=== PATIENT | female | born 1980 | race Caucasian/White ===

== ENCOUNTER 2025-02-28 11:37 | Emergency (ER) | payer MEDICARE, OTHER ==
[~2025-02-28] VITALS: Ht 154.9 cm; Wt 104.3 kg
[2025-02-28] MEDS ORDERED: LOSA50TA39 PO (11:43)
[2025-02-28] MEDS ORDERED: PROP10TA10 PO (11:43)
[2025-02-28 12:05] LABS: PLATELET COUNT (AUTO) 218 K/uL (179-408); RED BLOOD CELL COUNT(AUTO) 4.78 MIL/uL (3.63-4.92); RED CELL DISTRIBUTION WIDTH 13.3 % (12.3-17.7); WHITE BLOOD COUNT (AUTO) 6.6 K/uL (3.8-11.8)
[2025-02-28 12:35] LABS: CREATININE 0.8 mg/dL (0.6-1.3); SODIUM SERUM 143 mmol/L (136-145); UREA NITROGEN, BLOOD 9 mg/dL (7-18)
[2025-02-28 12:35] LABS: *BILIRUBIN,URIN NEGATIVE (NEGATIVE); *BLOOD, URINE NEGATIVE (NEGATIVE); *CLARITY,URINE CLEAR (CLEAR); *COLOR,URINE YELLOW (YELLOW); *KETONES,URINE NEGATIVE (NEGATIVE); *PROTEIN,URINE NEGATIVE (NEGATIVE); *UROBILINOGEN,URINE 0.2 E.U./dl (NORMAL); LEUKOCYTE ESTERASE ,URINE TRACE (NEGATIVE); NITRITE, URINE NEGATIVE (NEGATIVE); UGLUCOSE NEGATIVE (NEGATIVE)
[2025-02-28 12:41] LABS: *URINE HCG, QUAL NEGATIVE (NEGATIVE)
[2025-02-28 12:52] LABS: SQUAMOUS EPITHELIAL CELL,UR MODERATE /HPF (NONE SEEN)
[2025-02-28 13:00] VITALS: BP 121/81
[2025-02-28] MEDS ORDERED: MECLIZINE HCL 25 MG TABLET ONE (13:39)
[2025-02-28] MEDS: MECLIZINE HCL 25 MG TABLET PO ONE (13:40)
[2025-02-28 13:46] VITALS: BP 121/81; O2SAT 96
== END 2025-02-28 13:46 | disposition home or self-care (01) ==
LOC: ER 11:37
DX: I11.9 Hypertensive heart disease without heart failure (principal); R55 Syncope and collapse; F41.0 Panic disorder [episodic paroxysmal anxiety]; F20.9 Schizophrenia, unspecified; R03.0 Elevated blood-pressure reading, without diagnosis of hypertension; R09.02 Hypoxemia; Z79.899 Other long term (current) drug therapy; Z88.6 Allergy status to analgesic agent
CPT/HCPCS: 36415; 71045; 84443; 84484; 84703; 85025; 87086; A4606; A4663; J8597